=== PATIENT | male | born 1995 | race Caucasian/White ===

== ENCOUNTER 2021-02-19 10:45 | Emergency (ER) | payer BC ==
[~2021-02-19] VITALS: Ht 188 cm; Wt 136.4 kg
[2021-02-19 11:03] VITALS: BP 94/61; PULSE 89; TEMP 98.6
== END 2021-02-19 12:37 | disposition home or self-care (01) ==
LOC: COL.ER 10:45
DX: S61.012A Laceration without foreign body of left thumb without damage to nail, initial encounter (principal); S61.213A Laceration without foreign body of left middle finger without damage to nail, initial encounter; S61.215A Laceration without foreign body of left ring finger without damage to nail, initial encounter; Z23 Encounter for immunization; W29.3XXA Contact with powered garden and outdoor hand tools and machinery, initial encounter

== ENCOUNTER → 2021-03-05 | Outpatient (CLI) | payer BC | LOC: COL.ER 10:10 | DX: Z48.02 Encounter for removal of sutures (principal) ==